=== PATIENT | female | born 1940 | race Caucasian/White ===

== ENCOUNTER → 2016-12-24 | Outpatient (CLI) | payer MEDICARE, BC ==
--- NOTE | 2016-12-24 11:36 | MR ---
EXAMINATION TYPE: MR lumbar spine wo con DATE OF EXAM: 12/24/2016 COMPARISON: NONE HISTORY: radiculopathy lsp TECHNIQUE: T1 and T2 axial and sagittal images of the lumbar spine are submitted. FINDINGS: There is no abnormal signal seen within the visualized spinal cord. Large simple appearing left renal cyst. At L1-2 there is no disc herniation or canal stenosis. No foraminal encroachment. Neural foramina are patent. At L2-3 there is moderate degenerative disc disease with circumferential disc bulging and facet arthr opathy. Mild bilateral foraminal encroachment. Discogenic marrow changes are noted and there is 1 to 2 mm retrolisthesis of L2 on L3. At L3-4 there is degenerative disc disease. Suggestion of vacuum disc suggestive severe degenerative change. Circumferential disc bulging noted with facet arthropathy. No Canal stenosis. Mild bilateral foraminal encroachment. At L4-5 there is facet arthropathy with a mild circumferential disc bulging but no canal stenosis. Mi ld bilateral foraminal encroachment. Vacuum disc noted compatible severe degenerative disc disease. At L5-S1 there is degenerative disc disease with facet arthropathy and ligamentum flavum hypertrophy. No canal stenosis or foraminal encroachment. IMPRESSION: 1. Multilevel degenerative disc disease with vacuum disc compatible severe degenerative disc disease extending from levels L2-L5 2. Multilevel disc bulging but no canal stenosis. There is multilevel mild foraminal encroachment. 3. There is a 2 mm retrolisthesis L2 on L3. 4. Large left renal cyst measuring at least 9 cm correlate clinically. 5. along the inferior margin of the sagittal images there is a suggestion of partial fusion of the S1 and S2 segments and a fluid signal near the sacrococcygeal junction which may represent a large Tarl ov cyst. This could be correlated with sacral MRI if clinically warranted. Finding only partially inc luded in the exam.
== END | disposition home or self-care (01) ==
LOC: RADMRIMAIN 09:30
PROVIDERS: ATTEND Family Medicine
DX: M51.16 Intervertebral disc disorders with radiculopathy, lumbar region (principal); M43.16 Spondylolisthesis, lumbar region
CPT/HCPCS: 72148

== ENCOUNTER 2018-04-06 13:18 | Emergency (ER) | payer MEDICARE, BC ==
[2018-04-06 13:23] VITALS: RESP 18
[2018-04-06] MEDS ORDERED: ceFAZolin IN SWFI 2 GM/20 ML SYRINGE IVP STA (13:41)
[2018-04-06] MEDS ORDERED: HYDROmorphone 1 MG/ML 1 ML SYRINGE IVP STA ×3 (13:42→16:19)
[2018-04-06] MEDS ORDERED: ONDANSETRON 4 MG/2 ML VIAL IVP STA (13:43)
--- NOTE | 2018-04-06 13:48 | ED ---
General Adult HPI - General Chief complaint: Extremity Injury, Lower Stated complaint: rt knee pain Time Seen by Provider: 04/06/18 13:20 Source: patient, RN notes reviewed Mode of arrival: ambulatory Limitations: no limitations - History of Present Illness Initial comments: This is a 77-year-old female who presents emergency Department complaining of right knee pain. Patient had arthroscopic surgery [address] Savage. Patient states since then the knee is become more painful there is an area of redness on the lateral anterior aspect it measures approximately 5 cm in diameter. Patient states been getting worse it's warm and the pain is increasing. Patient denies any fever. Patient states she does have some pain radiating up the leg. Patient states her surgeon ordered an ultrasound to rule out clots. - Related Data Home Medications Medication Instructions Recorded Confirmed HYDROcodone/APAP 10-325MG [[place] 1 tab PO Q4H PRN 04/06/18 04/06/18 10-325] Indapamide [Lozol] 1.25 mg PO DAILY 04/06/18 04/06/18 Sertraline [Zoloft] 100 mg PO DAILY 04/06/18 04/06/18 Zolpidem Tartrate [Ambien] 10 mg PO HS PRN 04/06/18 04/06/18 rOPINIRole HCL [Requip] 1 mg PO HS 04/06/18 04/06/18 Allergies Allergy/AdvReac Type Severity Reaction Status Date / Time epinephrine AdvReac Dyspnea Verified 04/06/18 14:05 Review of Systems ROS Statement: Those systems with pertinent positive or pertinent negative responses have been documented in the HPI. ROS Other: All systems not noted in ROS Statement are negative. Past Medical History Past Medical History: No Reported History History of Any Multi-Drug Resistant Organisms: None Reported Past Surgical History: Bowel Resection Additional Past Surgical History / Comment(s): Meniscous repair in right knee, shoulder ssurgery, right hip Past Psychological History: No Psychological Hx Reported Smoking Status: Former smoker Past Alcohol Use History: Occasional Past Drug Use History: None Reported General Exam - General Exam Comments Initial Comments: GENERAL Patient is well-developed and well-nourished. Patient is in mild distress. EYES Patient's pupils are equal and round. Extraocular motion is intact SKIN Unremarkable NEURO The patient is alert and oriented 3 PYSCH Patient has normal interpersonal interactions. MUSCULOSKELETAL Patient's right knee has an area about 5 cm in diameter of erythema warmth and pain. Patient's calves nontender. Patient's thighs nontender is no swelling to the calf or thigh. Patient states she is able to bend it but it hurts pretty significantly so she does not like to bend at all. Limitations: no limitations Course Vital Signs 04/06/18 13:20 Temperature 98.4 F Pulse Rate 60 Respiratory 18 Rate Blood Pressure 127/32 O2 Sat by Pulse 97 Oximetry Medical Decision Making - Medical Decision Making Patient's ultrasound showed no DVT. Patient got 1 mg of Dilaudid and still complained of exquisite pain patient did also receive 2 g of Ancef. I spoke with Dr. Moreno he agreed that the patient needed to be transferred to Dr. Savage and family was reluctant because he didn't like [facility] but they agreed to be transferred. I spoke with [facility] about the transfer they accepted transfer. After the transfer was set up to family called me and stated they spoke directly with Dr. Hussein Savage would see them in the office immediately so he wanted be discharged to go to Dr. Savage's office. - Lab Data Result diagrams: 04/06/18 14:05 04/06/18 14:05 Lab Results 04/06/18 04/06/18 04/06/18 Range/Units 14:05 14:05 14:05 WBC 13.8 H (3.8-10.6) k/uL RBC 4.89 (3.80-5.40) m/uL Hgb 14.5 (11.4-16.0) gm/dL Hct 43.8 (34.0-46.0) % MCV 89.4 (80.0-100.0) fL MCH 29.7 (25.0-35.0) pg MCHC 33.2 (31.0-37.0) g/dL RDW 12.8 (11.5-15.5) % Plt Count 259 (150-450) k/uL Neutrophils % 79 % Lymphocytes % 9 % Monocytes % 10 % Eosinophils % 0 % Basophils % 0 % Neutrophils # 11.0 H (1.3-7.7) k/uL Lymphocytes # 1.2 (1.0-4.8) k/uL Monocytes # 1.4 H (0-1.0) k/uL Eosinophils # 0.1 (0-0.7) k/uL Basophils # 0.0 (0-0.2) k/uL Sodium 132 L (137-145) mmol/L Potassium 4.4 (3.5-5.1) mmol/L Chloride 93 L (98-107) mmol/L Carbon Dioxide 31 H (22-30) mmol/L Anion Gap 8 mmol/L BUN 23 H (7-17) mg/dL Creatinine 0.60 (0.52-1.04) mg/dL Est GFR (CKD-EPI)AfAm >90 (>60 ml/min/1.73 sqM) Est GFR (CKD-EPI)NonAf 88 (>60 ml/min/1.73 sqM) Glucose 115 H (74-99) mg/dL Plasma Lactic Acid Gomez 1.7 (0.7-2.0) mmol/L Calcium 9.2 (8.4-10.2) mg/dL Total Bilirubin 1.8 H (0.2-1.3) mg/dL AST 23 (14-36) U/L ALT 33 (9-52) U/L Alkaline Phosphatase 70 (38-126) U/L Total Protein 6.7 (6.3-8.2) g/dL Albumin 3.8 (3.5-5.0) g/dL Disposition Clinical Impression: Postoperative infection Disposition: HOME SELF-CARE Is patient prescribed a controlled substance at d/c from ED?: No Referrals: Bobby Savage MD [REFERRING] - 04/06/18 Time of Disposition: 16:19 - Out of Hospital Transfer - Req. Specs Out of Hospital Transfer - Requested Specifics: Other Emergency Center ([facility])
[2018-04-06 14:35] LABS: Basophils % (A) 0 %; Eosinophils # (A) 0.1 k/uL (0-0.7); Eosinophils % (A) 0 %; HCT 43.8 % (34.0-46.0); HGB 14.5 gm/dL (11.4-16.0); Lymphocytes # (A) 1.2 k/uL (1.0-4.8); Lymphocytes % (A) 9 %; MCH 29.7 pg (25.0-35.0); MCHC 33.2 g/dL (31.0-37.0); MCV 89.4 fL (80.0-100.0); Monocytes # (A) 1.4 k/uL (0-1.0); Monocytes % (A) 10 %; Neutrophils % (A) 79 %; Platelet Count 259 k/uL (150-450); RBC 4.89 m/uL (3.80-5.40); RDW 12.8 % (11.5-15.5); WBC 13.8 k/uL (3.8-10.6)
[2018-04-06 14:44] LABS: ALT 33 U/L (9-52); AST 23 U/L (14-36); Albumin 3.8 g/dL (3.5-5.0); Alkaline Phosphatase 70 U/L (38-126); Anion Gap 8 mmol/L; Blood Urea Nitrogen 23 mg/dL (7-17); Calcium 9.2 mg/dL (8.4-10.2); Carbon Dioxide 31 mmol/L (22-30); Chloride 93 mmol/L (98-107); Glucose 115 mg/dL (74-99); Potassium 4.4 mmol/L (3.5-5.1); Sodium 132 mmol/L (137-145); Total Bilirubin 1.8 mg/dL (0.2-1.3); Total Protein 6.7 g/dL (6.3-8.2)
--- NOTE | 2018-04-06 15:40 | US ---
EXAMINATION TYPE: US venous doppler duplex LE RT DATE OF EXAM: 04/06/2018 2:21 PM COMPARISON: NONE CLINICAL HISTORY: Pain. SIDE PERFORMED: Right TECHNIQUE: The lower extremity deep venous system is examined utilizing real time linear array sonog radha with graded compression, doppler sonography and color-flow sonography. VESSELS IMAGED: External Iliac Vein (EIV) Common Femoral Vein Deep Femoral Vein Greater Saphenous Vein * Femoral Vein Popliteal Vein Small Saphenous Vein * Proximal Calf Veins (* superficial vessels) Right Leg: Negative for DVT IMPRESSION: No diagnostic evidence of DVT as visualized.
[2018-04-06 16:46] VITALS: BP 106/53; PULSE 67; TEMP 98.2
== END 2018-04-06 16:49 | disposition home or self-care (01) ==
LOC: EC 13:18
DX: T81.40XA Infection following a procedure, unspecified, initial encounter (principal); Z98.890 Other specified postprocedural states; Z87.891 Personal history of nicotine dependence; Z79.899 Other long term (current) drug therapy; Z88.8 Allergy status to other drugs, medicaments and biological substances
CPT/HCPCS: 99284; 96374; 96375 ×2; 96376 ×2; 36415; 80053; 83605; 85025; 87040; 93971; J2405; J1170; J0690

== ENCOUNTER → 2018-07-13 | Outpatient (CLI) | payer MEDICARE, BC ==
--- NOTE | 2018-07-13 13:03 | MR ---
EXAMINATION TYPE: MR shoulder LT wo con DATE OF EXAM: 07/13/2018 12:51 PM COMPARISON: NONE HISTORY: Left shoulder pain TECHNIQUE: Multiplanar multispin echo imaging of the right shoulder was performed. FINDINGS: Rotator cuff : Noted are changes of prior rotator cuff repair. Metallic shaving artifact noted. Full- thickness tear previously repaired rotator cuff supraspinatus tendon without retraction. Atrophic alex nges of the supraspinatus and infraspinatus. Bursa: No bursal effusion or thickening is seen. Musculature: There is no muscular tear, contusion, or atrophy. Acromioclavicular joint : Moderate AC joint arthropathy. Postoperative changes acromion. Osseous structures : Bone marrow edema proximal humerus. No evidence for fracture or lesion. Long biceps tendon : The biceps tendon is normally situated within the bicipital groove. No complete or partial biceps tendon tear is present. Glenohumeral Joint fluid : There is no glenohumeral joint effusion. Cartilage and Bone : No focal hyaline cartilage defects are noted. No Hill-Sachs, reverse Hill-Sachs, or bony Bankart lesions are seen. Labrum : There are no SLAP or soft tissue Bankart lesions. No paralabral cysts are seen. OTHER FINDINGS : Cystic degenerative change humeral head. Small joint effusion noted. IMPRESSION: 1. Noted are changes of prior rotator cuff repair. Metallic shaving artifact noted. Full-thickness te ar previously repaired rotator cuff supraspinatus tendon without retraction.
== END | disposition home or self-care (01) ==
LOC: RADMRIMAIN 11:54
DX: M75.102 Unspecified rotator cuff tear or rupture of left shoulder, not specified as traumatic (principal); Z98.890 Other specified postprocedural states

== ENCOUNTER → 2022-04-26 | Outpatient (CLI) | payer MEDICARE, BC ==
--- NOTE | 2022-04-30 13:42 | MM ---
Reason for Exam: Screening (asymptomatic). Last mammogram was performed 3 year(s) and 4 month(s) ago. Patient History: Menarche at age 15. Patient has no children. Postmenopausal. Risk Values: Coby 5 year model risk: 1.6%. NCI Lifetime model risk: 2.4%. Prior Study Comparison: 12/23/2017 Bilateral MG 3D screening mammo w/cad, [facility]. 12/14/2018 Bilateral MG 3D diag mammo w/cad LCAUDIA - 2, [facility]. Tissue Density: The breast tissue is heterogeneously dense. This may lower the sensitivity of mammography. Findings: Analyzed By CAD. A couple areas of nodularity along the lateral aspect of the left breast on the CC you in completely disperse on 3-D images and may represent intramammary lymph nodes but just not well seen previously. Further evaluation is recommended. Otherwise, no significant change. Overall Assessment: Incomplete: need additional imaging evaluation, BI-RAD 0 Management: Special View Mammogram of the left breast. Diagnostic Breast Ultrasound of the left breast. Special views left breast to include spot 3-D CC, 3-D CC rolled medial, and 3-D ML views. Targeted left breast ultrasound lateral half from 12:00 to 6:00 including the axilla and site of patient's bruising. [facility] will attempt to contact patient to return for supplemental views and ultrasound if indicated. Electronically signed and approved by: Aar Gallardo M.D. Radiologist
== END | disposition home or self-care (01) ==
LOC: RADMAMWWP 16:30
PROVIDERS: ATTEND Family Medicine
DX: Z12.31 Encounter for screening mammogram for malignant neoplasm of breast (principal); Z78.0 Asymptomatic menopausal state
CPT/HCPCS: 77063; 77067

== ENCOUNTER → 2022-05-05 | Outpatient (CLI) | payer MEDICARE, BC ==
--- NOTE | 2022-05-05 10:55 | MM ---
Reason for Exam: Additional evaluation requested from abnormal screening. Last screening mammogram was performed less than 1 month ago. Patient History: Menarche at age 15. Patient has no children. Postmenopausal. Risk Values: Coby 5 year model risk: 1.6%. NCI Lifetime model risk: 2.4%. Prior Study Comparison: 12/23/2017 Bilateral MG 3D screening mammo w/cad, [facility]. 12/14/2018 Bilateral MG 3D diag mammo w/cad CLAUDIA - 2, [facility]. 04/26/2022 Bilateral MG 3D screening mammo w/cad, [facility]. Tissue Density: Left: The breast tissue is heterogeneously dense. This may lower the sensitivity of mammography. Findings: Analyzed By CAD. Nodularity outer left CC view persists although appears less conspicuous. Ultrasound is recommended. Overall Assessment: Incomplete: need additional imaging evaluation, BI-RAD 0 Management: Diagnostic Breast Ultrasound of the left breast. A clinical breast exam by your physician is recommended on an annual basis and results should be correlated with mammographic findings. This exam should not preclude additional follow-up of suspicious palpable abnormalities. Results were given to the patient verbally at the time of exam. Electronically signed and approved by: Eyal Mak M.D. Radiologis
--- NOTE | 2022-05-05 11:22 | USB ---
Reason for Exam: Additional evaluation requested from abnormal screening. Patient History: Menarche at age 15. Patient has no children. Postmenopausal. Risk Values: Coby 5 year model risk: 1.6%. NCI Lifetime model risk: 2.4%. Prior Study Comparison: 12/23/2017 Bilateral MG 3D screening mammo w/cad, [facility]. 12/14/2018 Bilateral MG 3D diag mammo w/cad CLAUDIA - 2, [facility]. 04/26/2022 Bilateral MG 3D screening mammo w/cad, [facility]. Findings: The lateral section of the breast of the left breast, the axilla of the left breast and the retroareolar of the left breast were scanned. No solid or cystic masses are identified.. Overall Assessment: Probably benign, BI-RAD 3 Management: Diagnostic Mammogram of the left breast in 6 months. A clinical breast exam by your physician is recommended on an annual basis and results should be correlated with mammographic findings. This exam should not preclude additional follow-up of suspicious palpable abnormalities. Results were given to the patient verbally at the time of exam. Electronically signed and approved by: Eyal Mak M.D. Radiologis
== END | disposition home or self-care (01) ==
LOC: RADMAMWWP 10:16
PROVIDERS: ATTEND Family Medicine
DX: R92.8 Other abnormal and inconclusive findings on diagnostic imaging of breast (principal); Z78.0 Asymptomatic menopausal state
CPT/HCPCS: 77065; 76642; G0279; 77061

== ENCOUNTER 2022-12-07 08:03 | Emergency (ER) | payer MEDICARE, BC ==
[2022-12-07] MEDS ORDERED: SODIUM CHLORIDE 0.9% 500 ML 500 ML IV STA (08:06)
--- NOTE | 2022-12-07 08:09 | ED ---
General Adult HPI - General Stated complaint: Abd Pain Time Seen by Provider: 12/07/22 08:03 Source: patient, RN notes reviewed, old records reviewed - History of Present Illness Initial comments: This is an 82-year-old female who has a past medical history significant for cholecystectomy as well as a bowel obstruction. Patient states she has small section for bowel movement 25 years ago. Patient states she has epigastric ab dominal pain which started yesterday and it comes and goes. Patient states when it comes it feels like her gallbladder pain from the past. Patient states she's also very nauseated. Patient states she always has a little bit of baseline nausea but he gets much worse when the pain comes on. Patient denies radiation of the back. Patient denies chest pain difficulty breathing shortness of breath. He denies any diarrhea she thinks she still passing some gas. Patient has not had a bowel movement since this began. Patient denies any fever chills. - Related Data Home Medications Medication Instructions Recorded Confirmed HYDROcodone/APAP 10-325MG [[place] 1 tab PO Q4H PRN 04/06/18 04/06/18 10-325] Indapamide [Lozol] 1.25 mg PO DAILY 04/06/18 04/06/18 Sertraline [Zoloft] 100 mg PO DAILY 04/06/18 04/06/18 Zolpidem Tartrate [Ambien] 10 mg PO HS PRN 04/06/18 04/06/18 rOPINIRole HCL [Requip] 1 mg PO HS 04/06/18 04/06/18 Allergies Allergy/AdvReac Type Severity Reaction Status Date / Time epinephrine AdvReac Dyspnea Verified 04/06/18 14:05 Review of Systems ROS Statement: Those systems with pertinent positive or pertinent negative responses have been documented in the HPI. ROS Other: All systems not noted in ROS Statement are negative. Past Medical History Past Medical History: No Reported History History of Any Multi-Drug Resistant Organisms: None Reported Past Surgical History: Bowel Resection Additional Past Surgical History / Comment(s): Meniscous repair in right knee, shoulder ssurgery, right hip Past Psychological History: No Psychological Hx Reported Past Alcohol Use History: Occasional Past Drug Use History: None Reported General Exam - General Exam Comments Initial Comments: GENERAL: Patient is well-developed and well-nourished. Patient is nontoxic and well- hydrated and is in mild distress. ENT: Neck is soft and supple. No significant lymphadenopathy is noted. Oropharynx is clear. Moist mucous membranes. Neck has full range of motion without eliciting any pain. EYES: The sclera were anicteric and conjunctiva were pink and moist. Extraocular mo vements were intact and pupils were equal round and reactive to light. Eyelids were unremarkable. PULMONARY: Unlabored respirations. Good breath sounds bilaterally. No audible rales rhonchi or wheezing was noted. CARDIOVASCULAR: There is a regular rate and rhythm without any murmurs gallops or rubs. ABDOMEN: Patient has mild epigastric abdominal pain on palpation no rebound SKIN: Skin is clear with no lesions or rashes and otherwise unremarkable. NEUROLOGIC: Patient is alert and oriented x3. Cranial nerves II through XII are grossly intact. Motor and sensory are also intact. Normal speech, volume and content. Symmetrical smile. MUSCULOSKELETAL: Normal extremities with adequate strength and full range of motion. No lower extremity swelling or edema. No calf tenderness. LYMPHATICS: No significant lymphadenopathy is noted PSYCHIATRIC: Normal psychiatric evaluation. Course Vital Signs 12/07/22 12/07/22 08:04 10:00 Temperature 97.9 F Pulse Rate 85 92 Respiratory 18 18 Rate Blood Pressure 127/75 145/90 O2 Sat by Pulse 98 99 Oximetry Medical Decision Making - Medical Decision Making EKG was interpreted by myself shows sinus rhythm at 90 bpm OK interval 183 QRS and an 13 QT interval 31 QTC is 428. Patient's EKG shows Q wave in V1 through V3. Was pt. sent in by a medical professional or institution (, PA, COMPLIANCE SPEC, urgent care, hospital, or halfway...) When possible be specific @ -No Did you speak to anyone other than the patient for history (EMS, parent, family, police, friend...)? What history was obtained from this source @ -No Did you review nursing and triage notes (agree or disagree)? Why? @ -I reviewed and agree with nursing and triage notes Were old charts reviewed (outside hosp., previous admission, EMS record, old EKG, old radiological studies, urgent care reports/EKG's, halfway records)? Report findings @ -I reviewed prior lab work prior charts this patient Differential Diagnosis (chest pain, altered mental status, abdominal pain women, abdominal pain men, vaginal bleeding, weakness, fever, dyspnea, syncope, headache, dizziness, GI bleed, back pain, seizure, CVA, palpatations, mental health, musculoskeletal)? @ -Differential Abdominal Pain Women: Appendicitis, Cholecystitis, diverticulosis, ischemic bowel, pancreatitis, hepatitis, UTI, gastroenteritis, AAA, incarcerated hernia, bowel obstruction, constipation, inflammatory bowel, hepatitis, peptic ulcer disease, splenic infarction, perforated viscus, vulvitis, ovarian torsion, PID, kidney stone, placenta abruption, this is not meant to be an all-inclusive list EKG interpreted by me (3pts min.). @ -As above X-rays interpreted by me (1pt min.). @ -KUB shows multiple air-fluid levels consistent with ileus versus obstruction CT interpreted by me (1pt min.). 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 min.). @ -None done What testing was considered but not performed or refused? (CT, X-rays, U/S, labs)? Why? @ -None What meds were considered but not given or refused? Why? @ -None Did you discuss the management of the patient with other professionals (professionals i.e. , PA, COMPLIANCE SPEC, lab, RT, psych nurse, social media campaign manager, bristle machine operator, teacher, production officer, special education case manager)? Give summary @ -Spoke with [facility] they accepted the transfer to the emergency department Was smoking cessation discussed for >3mins.? @ -No Was critical care preformed (if so, how long)? @ -No Were there social determinants of health that impacted care today? How? (Homelessness, low income, unemployed, alcoholism, drug addiction, transportation, low edu. Level, literacy, decrease access to med. care, detention, rehab)? @ -No Was there de-escalation of care discussed even if they declined (Discuss DNR or withdrawal of care, Hospice)? DNR status @ -No What co-morbidities impacted this encounter? (DM, HTN, Smoking, COPD, CAD, Cancer, CVA, ARF, Chemo, Hep., AIDS, mental health diagnosis, sleep apnea, morbid obesity)? @ -None Was patient admitted / discharged? Hospital course, mention meds given and route, prescriptions, significant lab abnormalities, going to OR and other pertinent info. @ -Patient had a history of small bowel obstruction and lab work was done and x-ray was done that showed a possible small bowel structures will follow-up CAT scan was then it did show a significant obstruction with a transition point. Patient's request was to go to [facility] even though we had the capability of taking care of her here. Patient was informed that there will be another ER built and a ambulance though that may not be covered by insurance. [facility] except the patient I will transfer the patient Undiagnosed new problem with uncertain prognosis? @ -No Drug Therapy requiring intensive monitoring for toxicity (Heparin, Nitro, Insulin, Cardizem)? @ -No Were any procedures done? @ -No Diagnosis/symptom? @ -Small Bowel obstruction Acute, or Chronic, or Acute on Chronic? @ -Acute Uncomplicated (without systemic symptoms) or Complicated (systemic symptoms)? @ -Complicated Side effects of treatment? @ -No Exacerbation, Progression, or Severe Exacerbation? @ -No Poses a threat to life or bodily function? How? (Chest pain, USA, ME, pneumonia, PE, COPD, DKA, ARF, appy, cholecystitis, CVA, Diverticulitis, Homicidal, Suicidal, threat to staff... and all critical care pts) @ -No - Lab Data Result diagrams: 12/07/22 08:16 12/07/22 08:16 Lab Results 12/07/22 12/07/22 12/07/22 Range/Units 08:16 08:16 08:16 WBC 11.7 H (3.8-10.6) k/uL RBC 5.05 (3.80-5.40) m/uL Hgb 15.0 (11.4-16.0) gm/dL Hct 45.9 (34.0-46.0) % MCV 90.9 (80.0-100.0) fL MCH 29.8 (25.0-35.0) pg MCHC 32.8 (31.0-37.0) g/dL RDW 12.8 (11.5-15.5) % Plt Count 234 (150-450) k/uL MPV 8.3 Neutrophils % 86 % Lymphocytes % 8 % Monocytes % 5 % Eosinophils % 1 % Basophils % 0 % Neutrophils # 10.0 H (1.3-7.7) k/uL Lymphocytes # 0.9 L (1.0-4.8) k/uL Monocytes # 0.5 (0-1.0) k/uL Eosinophils # 0.1 (0-0.7) k/uL Basophils # 0.0 (0-0.2) k/uL Sodium 140 (137-145) mmol/L Potassium 3.7 (3.5-5.1) mmol/L Chloride 102 (98-107) mmol/L Carbon Dioxide 28 (22-30) mmol/L Anion Gap 10 mmol/L BUN 13 (7-17) mg/dL Creatinine 0.64 (0.52-1.04) mg/dL Est GFR (CKD-EPI)AfAm >90 (>60 ml/min/1.73 sqM) Est GFR (CKD-EPI)NonAf 83 (>60 ml/min/1.73 sqM) Glucose 143 H (74-99) mg/dL Plasma Lactic Acid Gomez 1.3 (0.7-2.0) mmol/L Calcium 9.5 (8.4-10.2) mg/dL Total Bilirubin 1.5 H (0.2-1.3) mg/dL AST 25 (14-36) U/L ALT 18 (4-34) U/L Alkaline Phosphatase 106 (38-126) U/L Troponin I (0.000-0.034) ng/mL Total Protein 7.8 (6.3-8.2) g/dL Albumin 4.5 (3.5-5.0) g/dL Amylase 56 (30-110) U/L Lipase 59 (23-300) U/L 12/07/22 Range/Units 09:26 WBC (3.8-10.6) k/uL RBC (3.80-5.40) m/uL Hgb (11.4-16.0) gm/dL Hct (34.0-46.0) % MCV (80.0-100.0) fL MCH (25.0-35.0) pg MCHC (31.0-37.0) g/dL RDW (11.5-15.5) % Plt Count (150-450) k/uL MPV Neutrophils % % Lymphocytes % % Monocytes % % Eosinophils % % Basophils % % Neutrophils # (1.3-7.7) k/uL Lymphocytes # (1.0-4.8) k/uL Monocytes # (0-1.0) k/uL Eosinophils # (0-0.7) k/uL Basophils # (0-0.2) k/uL Sodium (137-145) mmol/L Potassium (3.5-5.1) mmol/L Chloride (98-107) mmol/L Carbon Dioxide (22-30) mmol/L Anion Gap mmol/L BUN (7-17) mg/dL Creatinine (0.52-1.04) mg/dL Est GFR (CKD-EPI)AfAm (>60 ml/min/1.73 sqM) Est GFR (CKD-EPI)NonAf (>60 ml/min/1.73 sqM) Glucose (74-99) mg/dL Plasma Lactic Acid Gomez (0.7-2.0) mmol/L Calcium (8.4-10.2) mg/dL Total Bilirubin (0.2-1.3) mg/dL AST (14-36) U/L ALT (4-34) U/L Alkaline Phosphatase (38-126) U/L Troponin I <0.012 (0.000-0.034) ng/mL Total Protein (6.3-8.2) g/dL Albumin (3.5-5.0) g/dL Amylase (30-110) U/L Lipase (23-300) U/L Disposition Clinical Impression: Small bowel obstruction Disposition: OTHER INSTITUTION NOT DEFINED Referrals: Jeff Pate MD [Primary Care Provider] - 1-2 days Time of Disposition: 12:39 - Out of Hospital Transfer - Req. Specs Out of Hospital Transfer - Requested Specifics: Other Emergency Center ([place] at [facility])
[2022-12-07 08:10] VITALS: RESP 18; TEMP 97.9
[2022-12-07 08:29] LABS: Basophils % (A) 0 %; Eosinophils # (A) 0.1 k/uL (0-0.7); Eosinophils % (A) 1 %; HCT 45.9 % (34.0-46.0); Lymphocytes # (A) 0.9 k/uL (1.0-4.8); Lymphocytes % (A) 8 %; MCH 29.8 pg (25.0-35.0); MCHC 32.8 g/dL (31.0-37.0); MCV 90.9 fL (80.0-100.0); Mean Platelet Volume 8.3; Monocytes # (A) 0.5 k/uL (0-1.0); Monocytes % (A) 5 %; Neutrophils % (A) 86 %; Platelet Count 234 k/uL (150-450); RBC 5.05 m/uL (3.80-5.40); RDW 12.8 % (11.5-15.5); WBC 11.7 k/uL (3.8-10.6)
[2022-12-07 08:43] LABS: ALT 18 U/L (4-34); AST 25 U/L (14-36); African American GFR (CKD) >90 (>60 ml/min/1.73 sqM); Albumin 4.5 g/dL (3.5-5.0); Alkaline Phosphatase 106 U/L (38-126); Amylase 56 U/L (30-110); Anion Gap 10 mmol/L; Blood Urea Nitrogen 13 mg/dL (7-17); Calcium 9.5 mg/dL (8.4-10.2); Carbon Dioxide 28 mmol/L (22-30); Chloride 102 mmol/L (98-107); Glucose 143 mg/dL (74-99); Lipase 59 U/L (23-300); Non-African American GFR(CKD) 83 (>60 ml/min/1.73 sqM); Potassium 3.7 mmol/L (3.5-5.1); Sodium 140 mmol/L (137-145); Total Bilirubin 1.5 mg/dL (0.2-1.3); Total Protein 7.8 g/dL (6.3-8.2)
[2022-12-07] MEDS ORDERED: MAG HYDROX/AL HYDROX/SIMETH 30 ML, HYOSCYAMINE ELIXIR 10 ML, LIDOCAINE 2% GLYDO JELLY 1... PO STA ×3 (10:00)
--- NOTE | 2022-12-07 10:07 | XR ---
EXAMINATION TYPE: XR KUB DATE OF EXAM: 12/07/2022 COMPARISON: None INDICATION: Abdominal pain and nausea TECHNIQUE: Single view abdomen upright view FINDINGS: There are differential air-fluid levels in the right lower quadrant. Small amount of colonic bowel ga s at the ascending colon may be present. Some fecal debris appears to be present. Cholecystectomy clips are in the right upper quadrant. Right hip prosthesis is present. Psoas margins are normal. No organomegaly is present. Appears to be fusion through the pubic symphysis. Degenerative changes are at the left hip. There may be fusion of the left sacroiliac joint. Partial fusion of the right sacroiliac joint may be present. Consider ankylosing spondylitis. IMPRESSION: 1. Differential air-fluid levels right lower quadrant. Small bowel obstruction should be considered. Follow-up is recommended. Report was called and case discussed with the emergency room physician.
--- NOTE | 2022-12-07 11:32 | CT ---
EXAMINATION TYPE: CT abdomen pelvis w con DATE OF EXAM: 12/07/2022 COMPARISON: KUB same date INDICATION: Obstruction DLP: 768.5 mGycm, Automated exposure control for dose reduction was used. CONTRAST: 100 ml mL of Isovue 300. Study performed without Oral Contrast TECHNIQUE: Axial images were obtained from above the diaphragm to the pubic rami in the axial plane a t 5 mm thick sections. Reconstructed images are reviewed on the computer in the coronal plane. FINDINGS: Limited CT sections are obtained the lung bases. The lung bases are clear. CT ABDOMEN: Ascites adjacent to the liver. Small amount of free fluid is within the pelvis. Liver: Normal Spleen: Normal Pancreas: Normal Adrenal glands: The adrenal glands are normal. Gallbladder: Normal Kidneys: No masses are evident. No hydronephrosis is present. There is a large cyst on the lateral right kidney measuring 9.8 cm. Delayed images were obtained through the kidneys, which remain unremar kable. Aorta: Vascular calcification is within the aorta. Inferior vena cava: Normal. CT PELVIS: Right hip prosthesis causes some beam hardening artifact and some limitation of the lower pelvis. There are dilated small bowel loops with air fluid levels. This extends to the right lower quadrant. Within the right lower quadrant there is a zone of transition in the ileum. Series 201 image 54, seri es 202 image 46. This is distal ileum. There is an anastomosis within the ascending colon which appea rs widely patent. Terminal ileum appears patent and decompressed. Appendix: Not identified Urinary bladder: Normal as visualized Genitourinary structures: Uterus appears unremarkable. Adnexa are normal. Osseous structures: No suspicious lytic or sclerotic lesions. There is fusion of the pubic symphysis. Left sacroiliac joint appears fused. IMPRESSIONS: 1. Severe narrowing and a zone of transition in the distal ileum. Proximal small bowel is dilated co mpatible obstruction. Report was called to the emergency room physician by Dr. Roy by telephone a t 1121 hours 12/07/2022.
[2022-12-07 14:00] VITALS: BP 144/92; PULSE 78
== END 2022-12-07 14:00 | disposition other institution (70) ==
LOC: EC 08:03
DX: K56.609 Unspecified intestinal obstruction, unspecified as to partial versus complete obstruction (principal); Z88.8 Allergy status to other drugs, medicaments and biological substances
CPT/HCPCS: 36415; 93005; 80053; 82150; 83605; 83690; 84484; 85025; 74018; 74177; 99285; 96360; Q9967